=== PATIENT | female | born 2000 | race Two or more races ===

== ENCOUNTER 2023-06-04 06:01 | Inpatient (IN) ==
[2023-06-04] MEDS: OXYTOCIN 20 UNIT/1,000 ML-NS 20 UNIT/1,000 ML PLAST..BAG IV PRN (07:20)
[2023-06-04] MEDS ORDERED: ZOFRAN INJ 4 MG VIAL IVP PRN (07:26)
[2023-06-04] MEDS ORDERED: REGLAN INJ 10 MG VIAL IVP PRN (07:26)
--- NOTE | 2023-06-04 07:31 | DR.OB ---
OB QUICK NOTE Assessment/Plan (1) Active labor at term: Assessment/Plan: L&D 06/04/23 at 7:00am S-No complaint. O-Afebrile,VSS OEE=178 with good LTV, +accel, no decel. CTX=q 2-5 min., mild by palpation CVX=2cm/75%/-1/VTX AROM with light meconium. IUPC and FSE placed. A-IUP at 39 2/7 weeks for induction P-Begin pitocin induction Anticipate
[2023-06-04] MEDS: LR 1,000 ML IV 1,000 ML IV ONE ×2 (07:55→10:31)
[2023-06-04] MEDS: NUBAIN INJ 20 MG AMP IVP PRN (08:50)
[2023-06-04] MEDS: NUBAIN INJ 200 MG VIAL MULTIDOSE ONE (09:08)
[2023-06-04] MEDS: D5 1/2 NS 1,000 ML 1,000 ML IV SCH (09:08)
[2023-06-04] MEDS: PITOCIN ONE (09:09)
[2023-06-04] MEDS: FENTANYL VIAL INJ 100 mcg ONE (11:08)
[2023-06-04] MEDS: NAROPIN EPIDURAL 0.2% 100 ML ONE (11:10)
--- NOTE | 2023-06-04 12:21 | DR.OB ---
OB QUICK NOTE Assessment/Plan (1) Active labor at term: Assessment/Plan: L&D 06/04/23 at 12:15pm Pitocin=14mu/min. S-No complaint. s/p epidural. O-Afebrile,VSS FQT=559 with good LTV, +accel, no decel. CTX=q 1 1/2 to 2 min., about 45-55mmHg CVX=4cm/80%/-1/VTX A-IUP at 39 2/7 weeks for induction P-Cont. pitocin induction Anticipate
[2023-06-04] MEDS: BETADINE SOLN ONE (15:56)
--- NOTE | 2023-06-04 16:42 | DR.OB ---
OB QUICK NOTE Assessment/Plan (1) Active labor at term: Assessment/Plan: L&D 06/04/23 at 4:39pm Pitocin=22mu/min. S-No complaint except pressure with CTX. O-Afebrile,VSS NAX=467 with good LTV, +accel, no decel. CTX=q 1 1/2 to 2 min., about 50-65mmHg CVX=7cm/80%/0 A-IUP at 39 2/7 weeks for induction P-Cont. pitocin induction Anticipate
[2023-06-04] MEDS: PITOCIN IVP ONE (18:20)
[2023-06-04] MEDS ORDERED: MOTRIN TAB 800 MG PO PRN (18:35)
--- NOTE | 2023-06-04 18:35 | DR.OB ---
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 Head delivered over intact perineum. No nuchal cord. Nose and mouth bulb suctioned. Body delivered over intact perineum. Cord clamped x 2 and cut. handed to attendant. Cord sent for gases. Late meconium noted. Placenta delivered spontaneously / intact / 3 vessel cord. No CVX tear. A small second degree tear noted to patient left of midline, repaired with 0-vicryl in usual fashion. Viable female infant delivered by , VTX/OA, wt=7'5" and 8/9, stable to NBN. Mother stable to RR. ZNS=012yr.
[2023-06-04] MEDS: OXYTOCIN 20 UNIT/1,000 ML-NS 20 UNIT/1,000 ML PLAST..BAG IV SCH (18:58)
[2023-06-04] MEDS ORDERED: MILK OF MAGNESIA PO PRN (19:26)
[2023-06-04] MEDS ORDERED: AMBIEN PO PRN (19:26)
[2023-06-04] MEDS: DERMOPLAST PAIN RELIEF SPRAY TOP PRN (21:08)
[2023-06-04] MEDS: ADACEL or BOOSTRIX TDaP VACCINE IM ONE (21:09)
[2023-06-05] MEDS: MOTRIN TAB 800 MG PO PRN (00:39)
[2023-06-05 05:19] LABS: HEMATOCRIT 27.3 % (36.0-47.0)
[2023-06-05 05:54] LABS: HEMOGLOBIN 8.7 g/dL (12.0-16.0)
[2023-06-05] MEDS: PRENATAL PLUS PO SCH (09:24)
[2023-06-05] MEDS: FERROUS GLUCONATE PO SCH (18:11)
[2023-06-06 05:37] VITALS: RESP 18
[2023-06-06 08:26] VITALS: BP 132/69; PULSE 96; TEMP 97.6; O2SAT 98
== END 2023-06-06 11:30 | disposition home or self-care (01) | DRG 807 ==
LOC: LD 06:01
PROVIDERS: ADMIT Specialist; ATTEND Specialist
DX: Z3A.39 39 weeks gestation of pregnancy; O26.893 Other specified pregnancy related conditions, third trimester; Z37.0 Single live birth; Z01.812 Encounter for preprocedural laboratory examination; O70.1 Second degree perineal laceration during delivery